=== PATIENT | male | born 1990 | race Caucasian/White ===

== ENCOUNTER 2018-12-05 18:57 | Inpatient (IN) | payer OTHER ==
[~2018-12-05] VITALS: Ht 185.4 cm; Wt 123.9 kg
[~2018-12-05 18:57] MED LIST: AMBIEN CR 12.12.5 MG PO; AZULFIDINE500 MG/TAB PO; LORTAB 2.5/5001 TAB; NO HOME MEDICATIONS; NORCO 325 MG-51 TAB PO; XANAX .25M0.25 MG/TA PO
[2018-12-05 20:24] VITALS: BP 115/72; PULSE 113; TEMP 98.9
[2018-12-05] MEDS ORDERED: NORCO 325 MG-101 TAB PO (20:54)
[2018-12-05] MEDS ORDERED: FLEXERIL 1010 MG/TAB PO (21:33)
[2018-12-05] MEDS ORDERED: GLUCOPHAGE500 MG/TAB PO (21:33)
[2018-12-06] VITALS (11 sets, daily range): BP systolic 104–145; BP diastolic 57–82; PULSE 83–106; TEMP 97.3–99.5
--- NOTE | 2018-12-06 08:40 | NUR ---
No complaints. NPO for ERCP. Consent signed. To procedure per cart with OR staff.
--- NOTE | 2018-12-06 09:50 | NUR ---
Returned to room from ERCP. VSS. Complained of back pain. States abdomen feels numb.
--- NOTE | 2018-12-06 16:48 | NUR ---
Plan is to return home with Brother Eric Ochoa and Mother Christiane Medrano. Patient reports that he does not have a PCP. Patient reports that he uses [facility] for RX. Patient reports family will transfer home. Patient reports that he does not use any DME's or home health services. No additonal concerns at this time. Patient denies having a DPOA, offered; patient declined. Patient [place]
--- NOTE | 2018-12-06 18:00 | NUR ---
Medicated with Zofran for c/o mild nausea. States abdomen has felt numb for a couple of days. Morphine given for back pain.
--- NOTE | 2018-12-06 20:00 | NUR ---
Report receieved-assumed care for nightclub manager. Assessment complete. VS stable. Denies pain, N/V. Less jaundice this assessment compared to admission. IV to R FA-LR infusing at 100ml/hr. Plan of care discussed about surgery tomorrow. Verbalizes understanding. Denies needs. Will monitor.
[2018-12-07] VITALS (12 sets, daily range): BP systolic 118–137; BP diastolic 67–89; PULSE 77–99; TEMP 97.9–99.1
--- NOTE | 2018-12-07 10:00 | NUR ---
Patient alert and oriented, answers questions appropriately. See assessment. Abdomen soft, non distended, non tender. Bowel sounds active x4 quads. +Flatus. No c/o at this time.
--- NOTE | 2018-12-07 10:17 | NUR ---
Initial visit; Patient awaiting surgical procedure, thanks Bin Filler for looking in on him and keeping him in her prayers.
--- NOTE | 2018-12-07 20:00 | NUR ---
Reports pain 8/ to abdomen. Medicated with Morphine 2mg IVP at this time. Still reports nausea without emesis and dizziness when sitting up.
--- NOTE | 2018-12-07 21:49 | NUR ---
REPORTS CONTINUED PAIN 7/10 TO ABDOMEN. WAS ABLE TO GET UP TO VOID. STILL HAS NAUSEA, NO EMESIS. HAS NOT EATEN, IS DRINKING ORAL FLUIDS WELL.
--- NOTE | 2018-12-08 00:36 | NUR ---
Patient sitting in bed, reports no gas but stomach is more active. Encouraged to ambulate in hallway. Voiding without problem, has been up on own without nausea/vomiting or dizziness. Taking oral fluids well, capped IV site at this time.
[2018-12-08 04:09] VITALS: BP 139/75; PULSE 99; TEMP 98.6
--- NOTE | 2018-12-08 06:07 | NUR ---
Patient rates pain 7/10, [place] 1 tab at this time.
[2018-12-08 07:18] VITALS: BP 136/86; PULSE 100; TEMP 97.4
--- NOTE | 2018-12-08 08:05 | NUR ---
Patient resting in bed. He is yet to order breakfast. He denies nausea. He is rating his pain a 6/10. His abdomen is soft, bowels quiet. He does report passing flatus. Robotic lap site x4 , edges well approximated. Int. Will monitor
[2018-12-08 09:37] LABS: HEMATOCRIT 40.2 % (42.0-52.0); HEMOGLOBIN 13.7 g/dl (13.5-18.0); MEAN CELL VOLUME 86 fl (80.0-100.0); MEAN CORPUSCULAR HEMOGLOBIN 29 pg (27.0-31.0); MEAN CORPUSCULAR HGB CONC 34 g/dl (33.0-37.0); MEAN PLATELET VOLUME 9.7 fl (7.4-10.4); PLATELET COUNT 194 K/mm3 (130-400); RED BLOOD COUNT 4.67 M/mm3 (4.20-5.60); REDCELL DISTRIBUTION WIDTH-CV 12.5 % (11.5-14.5)
[2018-12-08 09:44] LABS: ALBUMIN 3.5 gm/dL (3.5-5.0); BILIRUBIN,TOTAL 4.3 mg/dL (0.0-1.0); CALCIUM 9.1 mg/dL (8.4-10.2); CREATININE, serum 0.48 (0.66-1.25); POTASSIUM 3.7 mmol/L (3.4-5.0)
--- NOTE | 2018-12-08 10:20 | NUR ---
Patient resting in bed. Pain medication per orders. He reports pain 8/10 & nausea. He is yet to eat anything today. Encourgaed po intake & activity.
[2018-12-08 11:41] VITALS: BP 147/92; PULSE 93; TEMP 97.9
--- NOTE | 2018-12-08 13:51 | NUR ---
Patient continues to rest in bed. He is wanting to discharge home. notifed. Patient made aware he must eat before he can go. Patient not wanting to order, he is going to try crackers & peanut butter, applesauce & pudding. Will monitor
--- NOTE | 2018-12-08 15:05 | NUR ---
Patient nauseated after having cereal. Myron & norco for pain per orders. Will slim
[2018-12-08 16:10] VITALS: BP 140/90; PULSE 94; TEMP 98.1
--- NOTE | 2018-12-08 19:14 | NUR ---
Spoke with . Patient to stay tonight recheck labs in am. Patient refused dinner. Continues to report nasuea. Bedside report to Mee POON
[2018-12-08 19:48] VITALS: BP 147/90; PULSE 94; TEMP 98.6
--- NOTE | 2018-12-08 21:00 | NUR ---
Pt. laying in bed at this time. Pt. is A&OX3, assessment complete. IV to rt. ac patent, IV fluids infusing per orders. Pt. reports that his nausea is unchanged and pain at a 4 at this time. Pt. would like pain meds with evening meds. Pt. denies further needs at this time. Call light within reach.
[2018-12-08 23:38] VITALS: BP 148/81; PULSE 87; TEMP 98.3
[2018-12-09 04:14] VITALS: BP 135/82; PULSE 89; TEMP 98.2
[2018-12-09 06:48] LABS: ALBUMIN 3.3 gm/dL (3.5-5.0); CALCIUM 8.8 mg/dL (8.4-10.2); CREATININE, serum 0.5 (0.66-1.25); POTASSIUM 3.6 mmol/L (3.4-5.0); TOTAL PROTEIN 6.9 gm/dL (6.4-8.2)
[2018-12-09 07:29] VITALS: BP 127/74; PULSE 86; TEMP 98.3
--- NOTE | 2018-12-09 10:02 | NUR ---
Patient ready for discharge. rounded this am. Patient still has complaints of nausea, but overall reports it much improved. He had toast & malt o meal for breakfast. Patient has motrin, for pain which he reports minimal relief & he then had norco & zofran prior to discharge. We reviewed all discharge instructions. Script for norco sent with patient & medication safety reviewed. Home med list dicussed. We reviewed incisions & incsions care. Follow up appt scheduled. Patient wheeled out with all belonings. His brother taking him home.
== END 2018-12-09 10:11 | disposition home or self-care (01) | DRG 419 ==
LOC: MEDICAL 18:57 → SURG 20:10
PROVIDERS: ADMIT Surgery
PROC: 0FC98ZZ Extirpation of Matter from Common Bile Duct, Via Natural or Artificial Opening Endoscopic (ICD-10-PCS; 2018-12-06)
PROC: 0FT44ZZ Resection of Gallbladder, Percutaneous Endoscopic Approach (ICD-10-PCS; principal; 2018-12-07 10:00)
DX: K80.42 Calculus of bile duct with acute cholecystitis without obstruction (principal); E11.9 Type 2 diabetes mellitus without complications; G89.29 Other chronic pain; M54.9 Dorsalgia, unspecified; E66.9 Obesity, unspecified; Z68.36 Body mass index [BMI] 36.0-36.9, adult; F41.9 Anxiety disorder, unspecified
CPT/HCPCS: A4216; C1769; G0378; J0690; J0696; J1170; J1200; J1815; J2270; J2405; J2550; J2704; J2710; J3010; J7120; Q9967